=== PATIENT | male | born 1975 | race African-American/Black ===

== ENCOUNTER 2017-10-17 15:30 | Emergency (ER) | payer OTHER ==
--- NOTE | 2017-10-17 15:47 | ER Document Report ---
HPI - HPI Patient complains to provider of: Injured both hands Onset: Just prior to arrival Onset/Duration: Sudden Pain Level: 5 Context: 42-year-old male got mad at work and punched a wall with both hands is complaining of right dorsal hand pain that radiates into his right wrist and dorsal left hand pain Associated Symptoms: None Exacerbated by: Movement Relieved by: Denies Similar symptoms previously: No Recently seen / treated by doctor: No - ROS ROS below otherwise negative: Yes Systems Reviewed and Negative: Yes All other systems reviewed and negative Past Medical History - General Information source: Patient - Social History Smoking Status: Unknown if Ever Smoked Lives with: Spouse/Significant other Family History: Reviewed & Not Pertinent - Past Medical History Cardiac Medical History: Reports: Hx Hypertension Surgical Hx: Negative - Immunizations Hx Diphtheria, Pertussis, Tetanus Vaccination: No Vertical Provider Document - CONSTITUTIONAL Agree With Documented VS: Yes Exam Limitations: No Limitations - INFECTION CONTROL TRAVEL OUTSIDE OF THE [place] IN LAST 30 DAYS: No - MUSCULOSKELETAL/EXTREMETIES Musculoskeletal/Extremeties: MAEW, FROM, Tender - Dorsal left hand with some mild swelling there is mild tenderness to the dorsal wrist, Edema - Dorsal right hand. negative: Eccymosis Notes: Nontender dorsal left hand but he states that hurts as well. - NEURO Motor/Sensory: No Motor Deficit, No Sensory Deficit Course - Re-evaluation Re-evalutation: 10/17/17 X-rays negative per rad Procedures - Immobilization Right Hand Time completed: 18:10 Immobilizer type: Rachid wrap Performed by: PCT Post-Proc Neuro Vasc Exam: Normal Alignment checked and good: Yes Discharge - Discharge Clinical Impression: right wrist and hand contusion Contusion of left hand Qualifiers: Encounter type: initial encounter Qualified Code(s): S60.222A - Contusion of left hand, initial encounter Condition: Good Disposition: HOME, SELF-CARE Instructions: Acetaminophen, Rachid Wrap ([facility]), Contusion ([facility]), Ibuprofen ( General) ([facility]) Additional Instructions: Rachid wrap for comfort Tylenol up to 4000 mg a day for pain Ftoq-yij-whijawg Motrin up to 800 mg 3 times a day for inflammation Return to the emergency room any worsening of the symptoms or concerns Copy of negative imaging reports given to you
[2017-10-17 15:49] VITALS: BP 143/95
--- NOTE | 2017-10-17 17:40 | RADIOLOGY REPORT (SQ) ---
EXAM DESCRIPTION: HAND RIGHT 3 VIEWS COMPLETED DATE/TIME: 10/17/2017 5:33 pm REASON FOR STUDY: punched wall with both hands today COMPARISON: None. EXAM PARAMETERS: NUMBER OF VIEWS: Three views. TECHNIQUE: AP, lateral and oblique radiographic images acquired of the right hand. LIMITATIONS: None. FINDINGS: MINERALIZATION: Normal. BONES: No acute fracture or dislocation. No worrisome bone lesions. JOINTS: No effusions. SOFT TISSUES: No soft tissue swelling. No foreign body. OTHER: No other significant finding. IMPRESSION: NEGATIVE STUDY OF THE RIGHT HAND. NO RADIOGRAPHIC EVIDENCE OF ACUTE INJURY. TECHNICAL DOCUMENTATION: JOB ID: [id number] [employer]- All Rights Reserved Reading location - IP/workstation name: [email or web address]
--- NOTE | 2017-10-17 17:41 | RADIOLOGY REPORT (SQ) ---
EXAM DESCRIPTION: WRIST RIGHT 3 VIEWS COMPLETED DATE/TIME: 10/17/2017 5:33 pm REASON FOR STUDY: punched wall with both hands today COMPARISON: None. NUMBER OF VIEWS: Three views. TECHNIQUE: AP, lateral, and oblique radiographic images acquired of the right wrist. LIMITATIONS: None. FINDINGS: MINERALIZATION: Normal. BONES: No acute fracture or dislocation. No worrisome bone lesions. Normal alignment. SOFT TISSUES: No soft tissue swelling. No foreign body. OTHER: No other significant finding. IMPRESSION: NEGATIVE STUDY OF THE RIGHT WRIST. NO RADIOGRAPHIC EVIDENCE OF ACUTE INJURY. TECHNICAL DOCUMENTATION: JOB ID: [id number] [employer]- All Rights Reserved Reading location - IP/workstation name: [email or web address]
--- NOTE | 2017-10-17 17:42 | RADIOLOGY REPORT (SQ) ---
EXAM DESCRIPTION: HAND LEFT 3 VIEWS COMPLETED DATE/TIME: 10/17/2017 5:33 pm REASON FOR STUDY: punched wall with both hands today COMPARISON: None. EXAM PARAMETERS: NUMBER OF VIEWS: Three views. TECHNIQUE: AP, lateral and oblique radiographic images acquired of the left hand. LIMITATIONS: None. FINDINGS: MINERALIZATION: Normal. BONES: No acute fracture or dislocation. No worrisome bone lesions. JOINTS: No effusions. SOFT TISSUES: No soft tissue swelling. No foreign body. OTHER: No other significant finding. IMPRESSION: NEGATIVE STUDY OF THE LEFT HAND. NO RADIOGRAPHIC EVIDENCE OF ACUTE INJURY. TECHNICAL DOCUMENTATION: JOB ID: [id number] [employer]- All Rights Reserved Reading location - IP/workstation name: [email or web address]
== END 2017-10-17 18:10 | disposition home or self-care (01) ==
LOC: ER 15:30
DX: S60.221A Contusion of right hand, initial encounter (principal); S60.211A Contusion of right wrist, initial encounter; M79.642 Pain in left hand; W22.01XA Walked into wall, initial encounter; Y99.0 Civilian activity done for income or pay; I10 Essential (primary) hypertension
CPT/HCPCS: 99283

== ENCOUNTER 2018-09-23 16:12 | Emergency (ER) | payer OTHER ==
[2018-09-23 16:17] VITALS: BP 155/97
[2018-09-23] MEDS ORDERED: OXYCODONE-ACETAMINOPHEN 5-325 MG TABLET PO ONE (17:16)
[2018-09-23] MEDS ORDERED: ONDANSETRON 4 MG TAB.RAPDIS PO ONE (17:16)
--- NOTE | 2018-09-23 17:19 | ER Document Report ---
ED Medical Screen (RME) - General Chief Complaint: Finger Injury Stated Complaint: FINGER INJURY Time Seen by Provider: 09/23/18 17:10 Notes: Patient is a 43-year-old male with a history of hypertension who presents to the emergency department with a chief complaint of finger injury. Patient states that on he was out working in the yard when he crushed his left fourth finger with a sledgehammer. Patient states that since then he has been keeping it clean with peroxide and gmse-ncr-uiwdtzc antibiotic ointment. Patient reports there is a small healing laceration to the tip of the finger but does not have any active drainage. Patient denies numbness or tingling to his fingers. Patient denies any other injury. Patient reports his tetanus shot is up-to-date within the past few years. Patient states he has been taking Tylenol with minimal relief. TRAVEL OUTSIDE OF THE [place] IN LAST 30 DAYS: No - Related Data Allergies/Adverse Reactions: No Known Allergies Allergy (Verified 09/23/18 16:12) Past Medical History - Social History Chew tobacco use (# tins/day): No Frequency of alcohol use: None Drug Abuse: Marijuana - Past Medical History Cardiac Medical History: Reports: Hx Hypertension Renal/ Medical History: Denies: Hx Peritoneal Dialysis - Immunizations Hx Diphtheria, Pertussis, Tetanus Vaccination: No Physical Exam - Vital signs Vitals: Temp Pulse Resp BP Pulse Ox 98.1 F 79 17 155/97 H 98 09/23/18 16:15 09/23/18 16:15 09/23/18 16:15 09/23/18 16:15 09/23/18 16:15 - Extremities Notes: There is slight edema to the distal aspect of the left fourth finger. There does appear to be a hematoma underneath the fingernail. There is a 0.5cm-1 cm healing laceration that is linear to the tip of the finger does appear to have some possible skin tissue protruding. Course - Re-evaluation Re-evalutation: 09/23/18 17:19 I have greeted and performed a rapid initial assessment of this patient. A comprehensive ED assessment and evaluation of the patient, analysis of test results and completion of the medical decision making process will be conducted by additional ED providers. - Vital Signs Vital signs: Temp Pulse Resp BP Pulse Ox 98.1 F 79 17 155/97 H 98 09/23/18 16:15 09/23/18 16:15 09/23/18 16:15 09/23/18 16:15 09/23/18 16:15
--- NOTE | 2018-09-23 17:43 | RADIOLOGY REPORT (SQ) ---
EXAM DESCRIPTION: FINGER LEFT COMPLETED DATE/TIME: 09/23/2018 5:31 pm REASON FOR STUDY: hit left 4th finger with sledgehammer 2 days ago COMPARISON: None. EXAM PARAMETERS: NUMBER OF VIEWS: Three views. TECHNIQUE: AP, lateral and oblique radiographic images acquired of the left hand. LIMITATIONS: None. FINDINGS: MINERALIZATION: Normal. BONES: No dislocation. Crush injury to the distal tuft of the 4th distal phalanx. . JOINTS: No effusion. SOFT TISSUES: Moderate soft tissue swelling. No radiopaque foreign body. OTHER: No other significant finding. IMPRESSION: Crush injury to the distal tuft of the 4th distal phalanx. TECHNICAL DOCUMENTATION: JOB ID: [id number] [place]-72 2010 [employer]- All Rights Reserved Reading location - IP/workstation name: [email or web address]
--- NOTE | 2018-09-23 17:50 | ER Document Report ---
ED General - General Chief Complaint: Finger Injury Stated Complaint: FINGER INJURY Time Seen by Provider: 09/23/18 17:10 Notes: 43-year-old [id number] male presents with crush injury to the left ring finger distal, 2 days ago, with sledgehammer. Complains of mild pain. No drainage pus. Positive bruising under the nail. There was a laceration that he cleaned it. He was too stubborn to come in, he says, and finally came it at the request of the family member. His tetanus is up-to-date. He has no drainage or bleeding. TRAVEL OUTSIDE OF THE [place] IN LAST 30 DAYS: No - Related Data Allergies/Adverse Reactions: No Known Allergies Allergy (Verified 09/23/18 16:12) Past Medical History - Social History Smoking Status: Current Every Day Smoker Chew tobacco use (# tins/day): No Frequency of alcohol use: None Drug Abuse: Marijuana Family History: Reviewed & Not Pertinent Patient has suicidal ideation: No Patient has homicidal ideation: No - Past Medical History Cardiac Medical History: Reports: Hx Hypertension Renal/ Medical History: Denies: Hx Peritoneal Dialysis - Immunizations Hx Diphtheria, Pertussis, Tetanus Vaccination: No Review of Systems - Review of Systems Notes: REVIEW OF SYSTEMS GEN: Denies fever, chills, weight loss ENT: Denies sore throat, nasal discharge, ear pain EYES: Denies blurry vision, eye pain, discharge CV: Denies chest pain, palpitations, edema RESP: Denies cough, shortness of breath, wheezing GI: Denies abdominal pain, nausea, vomiting, diarrhea MSK: Pain SKIN: Denies rash, skin lesions LYMPH: Denies swollen glands/lymph nodes NEURO: Denies headache, focal weakness or numbness, dizziness PSYCH: Denies depression, suicidal or homicidal ideation PHYSICAL EXAMINATION General: No acute distress, well-nourished Head: Atraumatic, normocephalic ENT: Mouth normal, oropharynx moist, lips normal Eyes: Conjunctiva normal, pupils equal, lids normal Neck: No JVD, supple, no guarding Resp: No resp distress, equal chest rise GI: Nondistended, no guarding Back: No midline or CVA tenderness Ext: Mild tenderness and ecchymosis of the distal phalangeal segment of the left ring finger, with a linear laceration which is healing at the fingertip, and a 50% subungual hematoma with no evidence of nail loosening. Full range of motion, no tense compartments. Skin: Well-perfused, no rash Neuro: Awake, alert. Face symmetric.. Physical Exam - Vital signs Vitals: Temp Pulse Resp BP Pulse Ox 98.1 F 79 17 155/97 H 98 09/23/18 16:15 09/23/18 16:15 09/23/18 16:15 09/23/18 16:15 09/23/18 16:15 Course - Re-evaluation Re-evalutation: 09/23/18 17:49 They will crush injury with no signs of infection. Pain is mild, does not need trephination. Will need antibiotics given the open fracture, there is a tuft fracture on x-ray. I will splint, apply dressing, encourage follow-up with hand surgery. No need for tetanus. I have discussed with the patient there likely diagnosis, aftercare plan, follow-up plans and my usual and customary return precautions. They verbalized understanding of this. - Vital Signs Vital signs: Temp Pulse Resp BP Pulse Ox 98.1 F 79 17 155/97 H 98 09/23/18 16:15 09/23/18 16:15 09/23/18 16:15 09/23/18 16:15 09/23/18 16:15 - Diagnostic Test Radiology reviewed: Image reviewed, Reports reviewed Discharge - Discharge Clinical Impression: Crushing injury of left ring finger Qualifiers: Encounter type: initial encounter Qualified Code(s): S67.195A - Crushing injury of left ring finger, initial encounter Condition: Good Disposition: HOME, SELF-CARE Instructions: Crush Injury ([facility]) Prescriptions: Cephalexin Monohydrate [Keflex 500 mg Capsule] 500 mg PO Q6H 5 Days capsule
== END 2018-09-23 18:22 | disposition home or self-care (01) ==
LOC: ER 16:12
DX: S67.195A Crushing injury of left ring finger, initial encounter (principal); X58.XXXA Exposure to other specified factors, initial encounter; F17.200 Nicotine dependence, unspecified, uncomplicated; I10 Essential (primary) hypertension
CPT/HCPCS: 99283; 73140; S0119

== ENCOUNTER 2018-12-13 10:52 | Emergency (ER) | payer OTHER ==
[2018-12-13 10:57] VITALS: BP 155/103
[2018-12-13] MEDS ORDERED: HYDROCODONE/ACETAMINOPHEN 5-325 MG (6 TAB/ER DISP) PO PRN (11:43)
--- NOTE | 2018-12-13 11:46 | ER Document Report ---
HPI - HPI Time Seen by Provider: 12/13/18 11:31 Pain Level: Denies Notes: 3-year-old female presents to the ED for evaluation of a possible, global allergic reaction to his kaiser. Pt used just for men kaiser coverage 7 days ago. Patient noticed approximately 4 days ago started having irritation, itching and open areas to face under kaiser. Patient's tetanus is up-to-date. Has not tried any fpyk-paw-nfpferq medications aside from Benadryl. Patient states he put yo gurt and lemon juice on his face to see if this would help. Denies any other chemical that he put on his face. Denies fevers, chills, chest pain,palpitations, shortness of breath, dyspnea, nausea, vomiting, diarrhea, abdominal pain, hematuria,blurred vision, double vision, loss of vision, speech changes, LH, dizziness, syncope, headaches, wheezing, ST, URI, neck pain, weakness,, numbness or tingling in bilateral upper or lower extremities equally, muscle paralysis, weakness in bilateral upper or lower extremities equally or rash. Past Medical History - General Information source: Patient - Social History Smoking Status: Current Some Day Smoker Chew tobacco use (# tins/day): No Frequency of alcohol use: None Drug Abuse: None Family History: Reviewed & Not Pertinent Patient has suicidal ideation: No Patient has homicidal ideation: No - Past Medical History Cardiac Medical History: Reports: Hx Hypertension Renal/ Medical History: Denies: Hx Peritoneal Dialysis - Immunizations Hx Diphtheria, Pertussis, Tetanus Vaccination: No Vertical Provider Document - CONSTITUTIONAL Agree With Documented VS: Yes Exam Limitations: No Limitations General Appearance: WD/WN Notes: PHYSICAL EXAMINATION:reviewed vital signs by RN GENERAL: Well-appearing, well-nourished and in no acute distress. HEAD: Atraumatic, normocephalic. EYES: Pupils equal round and reactive to light, extraocular movements intact, sclera anicteric, conjunctiva are normal. ENT: Nares patent, oropharynx clear without exudates. Moist mucous membranes. NECK: Normal range of motion, supple without lymphadenopathy LUNGS: Breath sounds clear to auscultation bilaterally and equal. No wheezes rales or rhonchi. HEART: Regular rate and rhythm without murmurs ABDOMEN: Soft, nontender, nondistended abdomen. No guarding, no rebound. No masses appreciated. Musculoskeletal: Normal range of motion, no pitting or edema. No cyanosis. NEUROLOGICAL: Cranial nerves grossly intact. Normal speech, normal gait. Normal sensory, motor exams PSYCH: Normal mood, normal affect. SKIN: Warm, Dry, normal turgor, no rashes or lesions noted. Only where patient has a kaiser if they are scant blistering,scant tenderness to palpation with slight induration mostly on the left mandible, no surrounding lymphadenopathy. No surrounding erythema induration or warmth to touch. Noted papular rash to full kaiser. - INFECTION CONTROL TRAVEL OUTSIDE OF THE [place] IN LAST 30 DAYS: No Course - Re-evaluation Re-evalutation: 12/13/18 12:05 Vitals stable in no distress. Advised to take oral antibiotics as directed, use Silvadene as directed. Patient does need a repeat reevaluation in 2 days to see progress of chemical burn and allergic reaction. Advised to follow-up with primary care provider return to the emergency room. Wash with soap and water twice a day.Patient will be started on coverage for both staph and strep. At this time will discharge with return precautions and follow-up recommendations. Verbal discharge instructions given a the bedside and opportunity for questions given. Medication warnings reviewed. Patient is in agreement with this plan and has verbalized understanding of return precautions and the need for primary care follow-up in the next 24-72 hours. After performing a Medical Screening Examination, I estimate there is LOW risk for OPEN FRACTURE, COMPARTMENT SYNDROME, TENDON RUPTURE, ACUTE NEUROVASCULAR INJURY, or RETAINED FOREIGN BODY, thus I consider the discharge disposition reasonable. Also, there is no evidence or peritonitis, sepsis, or toxicity. I have reevaluated this patient multiple times and no significant life threatening changes are noted. The patient and I have discussed the diagnosis and risks, and we agree with discharging home with close follow-up with the understanding that symptoms and presentations can change. We also discussed returning to the Emergency Department immediately if new or worsening symptoms occur. We have discussed the symptoms which are most concerning (e.g., changing or worsening pain, fever, numbness, weakness, cool or painful digits) that necessitate immediate return. - Vital Signs Vital signs: Temp Pulse Resp BP Pulse Ox 98.4 F 80 18 155/103 H 98 12/13/18 10:56 12/13/18 10:56 12/13/18 10:56 11/07/19 10:56 12/13/18 10:56 Discharge - Discharge Clinical Impression: Chemical burn, Allergic reaction Condition: Stable Disposition: HOME, SELF-CARE Instructions: Amos ([facility]), Amos of the Face ([facility]), Soap Cleansing ([facility]), Silvadene Cream ([facility]) Additional Instructions: Wash your kaiser with soap and water twice a day. use Silvadene once daily for 7 days. He will need your burn reassessed in approximately 3 days. You can go to any local urgent care or your doctor's office for reevaluation. Your tetanus is up-to-date. Take prednisone as directed for itching as well as oral clindamycin for a cellulitis. Alternate between Tylenol and ibuprofen for pain control, if your pain becomes severe, take [place] pain medication, do not drive, drink alcohol or operate heavy machinery while taking this medication it can cause sedation or impairment of cognitive function. If your symptoms become worse, return to the emergency room return immediately for any new or worsening symptoms. Follow up with primary care provider, call tomorrow to make followup appointment.. Forms: Return to Work Referrals: LORA HOWARD MD [ACTIVE STAFF] - Follow up as needed
== END 2018-12-13 12:02 | disposition home or self-care (01) ==
LOC: ER 10:52
DX: T65.891A Toxic effect of other specified substances, accidental (unintentional), initial encounter (principal); T20.60XA Corrosion of second degree of head, face, and neck, unspecified site, initial encounter; T78.40XA Allergy, unspecified, initial encounter; X58.XXXA Exposure to other specified factors, initial encounter; F17.200 Nicotine dependence, unspecified, uncomplicated; I10 Essential (primary) hypertension
CPT/HCPCS: 87070; 87077; 87186; 87205; 99283

== ENCOUNTER 2019-03-05 22:27 | Emergency (ER) | payer OTHER ==
[2019-03-05] MEDS ORDERED: ASPIRIN 81 MG TABLET, CHEWABLE PO ONE (23:50)
--- NOTE | 2019-03-05 23:51 | ER Document Report ---
ED Medical Screen (RME) - General Chief Complaint: Chest Pain > 30 Stated Complaint: CHEST PAINS Time Seen by Provider: 03/05/19 23:47 Primary Care Provider: DENIZ GREWAL [Primary Care Provider] - Follow up as needed TRAVEL OUTSIDE OF THE [place] IN LAST 30 DAYS: No - HPI Notes: 03/05/19 23:50 43-year-old male with history of hypertension to the emergency department with complaints of left-sided chest pain has been going on for 3 days. He states that it hurts more when he exerts himself and he also feels short of breath. He denies any diaphoresis, nausea, vomiting. He is never had a heart attack. He denies any family history of heart attack. He states he smoke cigarettes. He has not been faithful with his blood pressure medicine of late. He denies any leg swelling. He denies cocaine use. I performed a brief medical screening exam on the patient determined he will need further evaluation and management by main side provider. 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 - Related Data Allergies/Adverse Reactions: No Known Allergies Allergy (Verified 12/13/18 11:25) Home Medications: BP med Past Medical History - Past Medical History Cardiac Medical History: Reports: Hx Hypertension Renal/ Medical History: Denies: Hx Peritoneal Dialysis - Immunizations Hx Diphtheria, Pertussis, Tetanus Vaccination: No Physical Exam - Vital signs Vitals: Temp Pulse Resp BP Pulse Ox 98.3 F 110 H 18 138/89 H 100 03/05/19 22:50 03/05/19 22:50 03/05/19 22:50 03/05/19 22:50 03/05/19 22:50 Course - Vital Signs Vital signs: Temp Pulse Resp BP Pulse Ox 98.3 F 110 H 18 138/89 H 100 03/05/19 22:50 03/05/19 22:50 03/05/19 22:50 03/05/19 22:50 03/05/19 22:50 Doctor's Discharge - Discharge Referrals: URI,DENIZ [Primary Care Provider] - Follow up as needed
[2019-03-06 00:56] LABS: ABSOLUTE LYMPHOCYTES (AUTO) 2.2 10^3/uL (0.5-4.7); ABSOLUTE MONOCYTES (AUTO) 0.8 10^3/uL (0.1-1.4); ABSOLUTE NEUT (AUTO) 4.5 10^3/uL (1.7-8.2); BASOPHILS % (AUTO) 0.5 % (0-2); EOSINOPHILS % (AUTO) 0.3 % (0-6); HEMATOCRIT 49.8 % (37.9-51.0); HEMOGLOBIN 17.2 g/dL (13.5-17.0); MEAN CORPUSCULAR HGB CONC 34.5 g/dL (32.0-36.0); MEAN CORPUSCULAR VOLUME 99 fl (80-97); MONOCYTES % (AUTO) 11.3 % (3-13); PLATELET COUNT 235 10^3/uL (150-450); RED BLOOD COUNT 5.05 10^6/uL (4.35-5.55); RED CELL DISTRIBUTION WIDTH 14.3 % (11.5-14.0); SEGMENTED NEUTROPHILS % (AUTO) 58.9 % (42-78); TOTAL CELLS COUNTED % (AUTO) 100 %; WHITE BLOOD COUNT 7.5 10^3/uL (4.0-10.5)
[2019-03-06 01:22] LABS: ALBUMIN 3.7 g/dL (3.5-5.0); ALKALINE PHOSPHATASE 67 U/L (38-126); ANION GAP 8 (5-19); ASPARTATE AMINO TRANSFERASE 25 U/L (17-59); BILIRUBIN,DIRECT 0.3 mg/dL (0.0-0.4); BILIRUBIN,TOTAL 0.8 mg/dL (0.2-1.3); BLOOD UREA NITROGEN 13 mg/dL (7-20); CALCIUM 9.8 mg/dL (8.4-10.2); CARBON DIOXIDE 32 mmol/L (22-30); CHLORIDE 93 mmol/L (98-107); GLUCOSE 109 mg/dL (75-110); TOTAL PROTEIN 6.5 g/dL (6.3-8.2)
--- NOTE | 2019-03-06 01:28 | ER Document Report ---
ED General - General Chief Complaint: Chest Pain > 30 Stated Complaint: CHEST PAINS Time Seen by Provider: 03/05/19 23:47 Primary Care Provider: BRADEN JIMÉNEZ MD [ACTIVE STAFF] - Follow up in 1 week [facility] [Primary Care Provider] - Follow up in 3-5 days Notes: 43-year-old male with history of hypertension and smoker presents with constant left-sided chest pain for 3 days. Associated dyspnea. Worse with exertion. No radiation. Patient denies any history of high cholesterol or diabetes. Patient denies any family history of any cardiac disease. Patient denies any cocaine abuse. Patient denies any recent long distance travel, recent hospitalizations, recent surgeries, testosterone use, personal history of cancer, or family history of PE or DVT. Patient also denies any personal history of cardiac disease. TRAVEL OUTSIDE OF THE [place] IN LAST 30 DAYS: No - Related Data Allergies/Adverse Reactions: No Known Allergies Allergy (Verified 12/13/18 11:25) Home Medications: BP med Past Medical History - Social History Smoking Status: Current Every Day Smoker Family History: Reviewed & Not Pertinent Patient has suicidal ideation: No Patient has homicidal ideation: No - Past Medical History Cardiac Medical History: Reports: Hx Hypertension Renal/ Medical History: Denies: Hx Peritoneal Dialysis - Immunizations Hx Diphtheria, Pertussis, Tetanus Vaccination: No Review of Systems - Review of Systems Notes: Constitutional: Negative for fever. HENT: Negative for sore throat. Eyes: Negative for visual changes. Cardiovascular: Positive for chest pain. Respiratory: Positive for shortness of breath. Gastrointestinal: Negative for abdominal pain, vomiting or diarrhea. Genitourinary: Negative for dysuria. Musculoskeletal: Negative for back pain. Skin: Negative for rash. Neurological: Negative for headaches, weakness or numbness. 10 point ROS negative except as marked above and in HPI. Physical Exam - Vital signs Vitals: Temp Pulse Resp BP Pulse Ox 98.3 F 110 H 18 138/89 H 100 03/05/19 22:50 03/05/19 22:50 03/05/19 22:50 03/05/19 22:50 03/05/19 22:50 - Notes Notes: GENERAL: Well-appearing, well-nourished and in no acute distress. HEAD: Atraumatic, normocephalic. EYES: Extraocular movements intact, sclera anicteric, conjunctiva are normal. NECK: Normal range of motion, supple without lymphadenopathy or JVD. LUNGS: Breath sounds clear to auscultation bilaterally and equal. No wheezes rales or rhonchi. HEART: Regular rate and rhythm without murmurs, rubs or gallops. EXTREMITIES: Normal range of motion, no pitting or edema. No clubbing or cyanosis. NEUROLOGICAL: Cranial nerves II through XII grossly intact. Normal speech, normal gait. PSYCH: Normal mood, normal affect. SKIN: Warm, Dry, normal turgor, no rashes or lesions noted. Course - Re-evaluation Re-evalutation: 03/06/19 Presentation of chest pain in an otherwise well appearing patient. Low clinical suspicion for ACS given clinical history, exam, EKG without ST elevations or depressions, and negative initial troponin. HEART score 2. PE also seems unlikely given clinical history, absence of tachycardia or dyspnea. Patient is PERC criteria negative. CXR without evidence of pneumothorax or pneumonia. No widened mediastinum. Aortic dissection also seems unlikely given history, symmetric pulses, CXR, and vitals. HEART Score: 2 Chest pain in a patient without evidence of cardiac or other serious etiology on workup today. I discussed with patient that, based on their age, risk factors and emergency department testing today, the likelihood that their symptoms are related to a heart attack is very low (estimated risk of heart attack or over the next 30 days of less than 1%). The patient demonstrates decision making capacity and has verbalized an understanding of these risks to me. Based on this, the patient has chosen to follow-up as an outpatient. Usual chest pain return precautions reviewed. The patient states understanding and agreement with this plan. - Vital Signs Vital signs: Temp Pulse Resp BP Pulse Ox 98.3 F 110 H 21 H 135/93 H 95 03/06/19 02:18 03/05/19 22:50 03/06/19 03:01 03/06/19 03:00 03/06/19 03:01 - Laboratory Result Diagrams: 03/06/19 00:40 03/06/19 00:40 Laboratory results interpreted by me: 03/06/19 03/06/19 00:40 00:40 Hgb 17.2 H MCV 99 H MCH 34.0 H RDW 14.3 H Sodium 132.5 L Chloride 93 L Carbon Dioxide 32 H Discharge - Discharge Clinical Impression: Chest pain Qualifiers: Chest pain type: unspecified Qualified Code(s): R07.9 - Chest pain, unspecified Condition: Stable Disposition: HOME, SELF-CARE Instructions: Chest Pain of Unclear Cause ([facility]) Additional Instructions: You were seen today for chest pain. The exact cause of your pain is unclear. However, based on your cardiac enzyme testing, chest x-ray, and EKG it does not appear that it is from an immediately life-threatening cause at this time. Although your testing here is normal is critical that you follow-up with your primary care physician for continued evaluation of this chest pain and possible stress testing. I recommended you see your physician within the next 24-48 hours to be evaluated for consideration of a stress test. Please return to emergency department immediately if you have worsening of your chest pain, shortness of breath, vomiting, become unable to exert yourself due to pain or difficulty breathing, you pass out, or have any pain that radiates into your arms, jaw, or back. Please also return if you have any additional symptoms that are concerning to you. Forms: Return to Work Referrals: [facility] [Primary Care Provider] - Follow up in 3-5 days BRADEN JIMÉNEZ MD [ACTIVE STAFF] - Follow up in 1 week
[2019-03-06] MEDS ORDERED: ASPIRIN 81 MG TABLET, CHEWABLE ONE (02:10)
--- NOTE | 2019-03-06 02:46 | RADIOLOGY REPORT (SQ) ---
EXAM DESCRIPTION: XR CHEST 2 VIEWS COMPLETED DATE/TME: 03/05/2019 23:50 CLINICAL HISTORY: 43 years, Male, chest pain COMPARISON: None. NUMBER OF VIEWS: 3 TECHNIQUE: PA and lateral LIMITATIONS: None. FINDINGS: Lungs grossly clear. Cardiomediastinal silhouette is stable. No pneumothorax. No effusion IMPRESSION: No acute intrathoracic process copyright 2010 [employer]- All Rights Reserved
[2019-03-06 07:25] VITALS: BP 137/91
--- NOTE | 2019-03-06 14:27 | EKG REPORT ---
SEVERITY:- OTHERWISE NORMAL ECG - SINUS TACHYCARDIA : Confirmed by: Joyce Bojorquez 06-Mar-2019 14:26:09
== END 2019-03-06 05:00 | disposition home or self-care (01) ==
LOC: ER 22:27
DX: R07.9 Chest pain, unspecified (principal); R06.00 Dyspnea, unspecified; R06.02 Shortness of breath; F17.200 Nicotine dependence, unspecified, uncomplicated; I10 Essential (primary) hypertension
CPT/HCPCS: 36415; 71046; 80053; 83735; 84484; 85025; 93005; 93010; 99285